=== PATIENT | male | born 1950 | race Asian ===

== ENCOUNTER 2019-08-30 06:33 | Day surgery (SDC) | payer OTHER, MEDICARE ==
[2019-08-28 09:50] VITALS: BMI 26.4
[2019-08-30] MEDS ORDERED: PROPOFOL 20 ML ONE (08:12)
[2019-08-30] MEDS ORDERED: MIDAZOLAM HCL 2 MG/2 ML SINGLE DOSE VIAL ONE (08:12)
[2019-08-30] MEDS ORDERED: ACETAMINOPHEN 325 MG TABLET (FP) PO PRN (08:36)
[2019-08-30] MEDS ORDERED: oxyCODONE HCL 5 MG TABLET PO PRN ×2 (08:36)
[2019-08-30] MEDS ORDERED: ONDANSETRON 4 MG/2 ML VIAL IVPUSH PRN (08:36)
[2019-08-30] MEDS ORDERED: KETOROLAC TROMETHAMINE 30 MG/1 ML VIAL ONE (08:43)
[2019-08-30] MEDS ORDERED: DEXAMETHASONE SOD PHOSPHATE 4 MG/1 ML VIAL ONE (08:43)
[2019-08-30] MEDS ORDERED: ONDANSETRON 4 MG/2 ML VIAL ONE (08:43)
[2019-08-30] MEDS ORDERED: LACTATED RINGERS SOLUTION 1,000 ML IV SCH (08:45)
[2019-08-30 09:33] VITALS: PULSE 57; TEMP 98
[2019-08-30 10:03] VITALS: BP 121/65
--- NOTE | 2019-08-30 13:53 | OP ---
DATE OF OPERATION: 08/30/2019 PREOPERATIVE DIAGNOSIS: Left ring finger mass. POSTOPERATIVE DIAGNOSIS: Left ring finger mass. OPERATIVE PROCEDURE: Left ring finger mass excision. SURGEON: Jones Hoff MD ANESTHESIA: Local with sedation. COMPLICATIONS: None. ESTIMATED BLOOD LOSS: Minimal. INDICATION FOR PROCEDURE: The patient is a 68-year-old male with above finding, indicated for operative treatment. Risks, benefits, and alternatives were discussed with patient at length. Proper informed consent was obtained. PROCEDURE: After proper identification of patient and correct operative site, patient was brought to operating room, placed on operating table, all prominences well padded. Sedation and local anesthesia were given. The left upper extremity was prepped and draped in usual sterile fashion. A well-padded tourniquet was placed over the sterile prep. Esmarch bandage used to exsanguinate left upper extremity. Tourniquet was inflated to 250 mmHg. A curvilinear incision was made over the dorsal aspect of the PIP joint, over the ring finger, which is where the mass was present. Blunt and sharp dissection was performed through the subcutaneous tissues. The mass was found to be a cystic structure emanating from the dorsal aspect of the PIP joint and it was excised in whole along with its stalk and sent for pathologic evaluation. The wound was irrigated, repaired with 5-0 fast-absorbing plain gut suture. Sterile dressings were applied. The patient was brought to the recovery room in stable condition. He tolerated the procedure well. JONES HOFF M.D. [id number]
--- NOTE | 2019-09-04 11:02 | PATH ---
Surgical Pathology Report Patient Name: LAYLA VENEGAS Med. Rec. #: [id number] /Age/Gender: 1950 (Age: 68) / M Account: [id number] Location: [facility] AMBULATORY Taken: 08/30/2019 Received: 08/30/2019 Reported: 09/04/2019 Physicians: Jones Small M.D. Specimen(s) Received MASS LEFT RING FINGER Clinical History Mass left ring finger Final Diagnosis RING FINGER, LEFT, MASS, EXCISION: GANGLION CYST. Electronically Signed Laura Barrientos M.D. Gross Description Received in formalin labeled "mass left ring finger," is a 1.3 x 0.7 x 0.2 cm [place] portion of soft tissue, possibly consistent with a cyst. The specimen is submitted in toto in one cassette. /08/31/2019 saudi08/31/2019
== END 2019-08-30 10:20 | disposition home or self-care (01) ==
LOC: FASU 06:33
PROVIDERS: ATTEND Orthopaedic Surgery Hand Surgery
PROC: 0RBX0ZZ Excision of Left Finger Phalangeal Joint, Open Approach (ICD-10-PCS; principal; 2019-08-30 08:30)
DX: M67.442 Ganglion, left hand (principal)
CPT/HCPCS: 88304-TC